=== PATIENT | male | born 1955 | race Caucasian/White ===

== ENCOUNTER 2019-09-29 19:27 | Emergency (ER) | payer BC ==
--- NOTE | 2019-09-29 19:47 | EDM.PDOC ---
ED HPI GENERAL MEDICAL PROBLEM - General Chief Complaint: Respiratory Problem Stated Complaint: SHORT OF BREATH Time Seen by Provider: 09/29/19 19:46 Source of Information: Reports: Patient History Limitations: Reports: No Limitations - History of Present Illness INITIAL COMMENTS - FREE TEXT/NARRATIVE: 64-year-old male presents to the ED due to severe paroxysmal cough throughout the day for the last week or more. Very rarely gets any phlegm up. No hemoptysis. No noted fever or chills. Was placed on a course of Augmentin for one week which she finished 2 days ago. He was also prescribed Phenergan with codeine cough syrup which did not seem to help control his cough. Was also given an albuterol inhaler. Patient is a never smoker. His hears him wheezing particularly during the night. Onset: Sudden Onset Date: 09/19/19 Duration: Day(s): (Illness started about 10 days ago), Constant, Other (Not getting any better after course of antibiotics.) Location: Reports: Chest (Severe paroxysmal cough nonproductive) Quality: Reports: Other Severity: Severe (Technical in his throat that makes him cough) Improves with: Reports: None Worsens with: Reports: Other Context: Denies: Activity (Lying down or exposure to cool air does not know certainly make it any worse.), Exercise, Lifting, Sick Contact Associated Symptoms: Reports: Chest Pain, Cough, Shortness of Breath (Cannot take a full deep breath as it makes him cough.). Denies: No Other Symptoms, Confusion (Central chest from coughing so much and ribs hurt from coughing so much.), cough w sputum, Diaphoresis, Fever/Chills, Headaches, Loss of Appetite, Malaise, Nausea/Vomiting, Rash, Seizure, Syncope Treatments J[employer]ER: Reports: Other (see below) (Suspicious completed a course of Augmentin) - Related Data Allergies Allergy/AdvReac Type Severity Reaction Status Date / Time No Known Allergies Allergy Verified 09/29/19 19:36 Home Meds: Home Meds Albuterol Sulfate [Albuterol Sulfate Hfa] 8.5 gm IH Q4HR PRN 09/29/19 [History] Amoxicillin/Clavulanate K [Augmentin 500-125 MG] 1 tab PO BID 09/29/19 [History] Aspirin 81 mg PO DAILY 09/29/19 [History] Codeine/Promethazine [Phenergan with Codeine] 5 ml PO DAILY 09/29/19 [History] Doxycycline [Vibramycin] 100 mg PO BID #20 cap 09/29/19 [Rx] HYDROcodone/Chlorphen Polis [Hydrocodone-Chlorpheniram] 5 ml PO Q12H #75 ml [Rx] Lisinopril 0 mg PO DAILY 09/29/19 [History] Metoprolol Tartrate 0 mg PO DAILY 09/29/19 [History] predniSONE [Prednisone] 20 mg PO ASDIRECTED #18 tablet 09/29/19 [Rx] Past Medical History HEENT History: Reports: Impaired Vision Cardiovascular History: Reports: Arrhythmia, High Cholesterol, Hypertension Respiratory History: Reports: None Gastrointestinal History: Reports: GERD Genitourinary History: Reports: None Neurological History: Reports: None Psychiatric History: Reports: None Endocrine/Metabolic History: Reports: Obesity/BMI 30+ Hematologic History: Reports: None Immunologic History: Reports: None Oncologic (Cancer) History: Reports: None Dermatologic History: Reports: None - Infectious Disease History Infectious Disease History: Reports: None - Past Surgical History GI Surgical History: Reports: Cholecystectomy, Other (See Below) Other GI Surgeries/Procedures: Splenectomy. Musculoskeletal Surgical History: Reports: Knee Replacement Other Musculoskeletal Surgeries/Procedures:: Arm Surgery Social & Family History - Tobacco Use Smoking Status *Q: Never Smoker - Caffeine Use Caffeine Use: Reports: None - Recreational Drug Use Recreational Drug Use: No - Living Situation & Occupation Living situation: Reports: Occupation: Employed ED ROS GENERAL - Review of Systems Review Of Systems: See Below Constitutional: Reports: Malaise, Weakness, Fatigue. Denies: Fever, Chills, Decreased Appetite, Weight Loss HEENT: Reports: Glasses Respiratory: Reports: Shortness of Breath, Wheezing, Cough. Denies: Pleuritic Chest Pain, Sputum (Severe paroxysmal cough to the point of nearly passing out and/or vomiting.) Cardiovascular: Reports: Chest Pain, Blood Pressure Problem (Central chest pain from coughing so much.), Dyspnea on Exertion. Denies: Claudication ( On medication for blood pressure and arrhythmias.), Edema, Lightheadedness, Orthopnea Endocrine: Reports: Fatigue GI/Abdominal: Reports: No Symptoms : Reports: Frequency, Other (No maravilla 2) Musculoskeletal: Reports: Back Pain, Joint Pain (Knees and hips and neck at times) Skin: Reports: No Symptoms Neurological: Reports: No Symptoms Psychiatric: Reports: No Symptoms Hematologic/Lymphatic: Reports: No Symptoms Immunologic: Reports: No Symptoms ED EXAM, GENERAL - Physical Exam Exam: See Below Exam Limited By: No Limitations General Appearance: Alert, WD/WN, No Apparent Distress, Other (Temperatures 36.4 pulse is 85 respiratory rate is 18 with O2 sats of 93% on room air. BP 11/19) Eye Exam: Bilateral Eye: Normal Inspection Throat/Mouth: Normal Inspection, Normal Lips, Normal Oropharynx Head: Atraumatic, Normocephalic Neck: Normal Inspection, Supple, Non-Tender, Full Range of Motion. No: Lymphadenopathy (L), Lymphadenopathy (R) Respiratory/Chest: No Respiratory Distress, No Accessory Muscle Use, Respiratory Distress, Wheezing (Diffuse expiratory wheezing). No: Lungs Clear, Normal Breath Sounds (Mild tachypnea), Crackles, Rales, Rhonchi, Stridor Cardiovascular: Regular Rate, Rhythm, No Edema, No Gallop, No Murmur, No Rub Peripheral Pulses: 1+: Posterior Tibial (L), Posterior Tibial (R), Dorsalis Pedis (L), Dorsalis Pedis (R) GI/Abdominal: Normal Bowel Sounds, Soft, Non-Tender, No Organomegaly, No Abnormal Bruit, No Mass, Pelvis Stable, Other (Abdominal girth limits ability to palpate solid organs.) Back Exam: Normal Inspection, Full Range of Motion. No: CVA Tenderness (L), CVA Tenderness (R) Extremities: Normal Inspection, Normal Range of Motion, Non-Tender Neurological: Alert, Oriented, CN II-XII Intact, Normal Cognition, Normal Gait Psychiatric: Normal Affect, Normal Mood Skin Exam: Warm, Dry, Intact, Normal Color, No Rash Course - Vital Signs Last Recorded V/S: Last Vital Signs Temp 36.4 C 09/29/19 19:34 Pulse 85 09/29/19 19:34 Resp 18 09/29/19 19:34 BP 114/55 L 09/29/19 19:34 Pulse Ox 95 09/29/19 21:17 - Orders/Labs/Meds Orders: Active Orders 24 hr Category Date Time Status RT Aerosol Therapy [RC] ASDIRECTED Care 09/29/19 19:56 Active RT Aerosol Therapy [RC] ASDIRECTED Care 09/29/19 21:09 Active Chest 1V Frontal [CR] Stat Exams 09/29/19 19:55 Taken Labs: Laboratory Tests 09/29/19 09/29/19 09/29/19 Range/Units 20:10 20:10 20:10 WBC 10.86 H (4.23-9.07) K/mm3 RBC 4.89 (4.63-6.08) M/mm3 Hgb 15.9 (13.7-17.5) gm/dl Hct 46.1 (40.1-51.0) % MCV 94.3 H (79.0-92.2) fl MCH 32.5 H (25.7-32.2) pg MCHC 34.5 (32.2-35.5) g/dl RDW Std Deviation 45.2 H (35.1-43.9) fL Plt Count 255 (163-337) K/mm3 MPV 9.3 L (9.4-12.3) fl Neut % (Auto) 68.1 H (34.0-67.9) % Lymph % (Auto) 23.2 (21.8-53.1) % [place] % (Auto) 6.8 (5.3-12.2) % Eos % (Auto) 0.6 L (0.8-7.0) Baso % (Auto) 0.5 (0.1-1.2) % Neut # (Auto) 7.40 H (1.78-5.38) K/mm3 Lymph # (Auto) 2.52 (1.32-3.57) K/mm3 [place] # (Auto) 0.74 (0.30-0.82) K/mm3 Eos # (Auto) 0.06 (0.04-0.54) K/mm3 Baso # (Auto) 0.05 (0.01-0.08) K/mm3 Manual Slide Review Normal smear D-Dimer, Quantitative (0.19-0.50) mg/L Sodium 140 (136-145) mEq/L Potassium 3.6 (3.5-5.1) mEq/L Chloride 104 (98-107) mEq/L Carbon Dioxide 23 (21-32) mEq/L Anion Gap 16.6 H (5-15) BUN 22 H (7-18) mg/dL Creatinine 1.2 (0.7-1.3) mg/dL Est Cr Clr Drug Dosing 59.67 mL/min Estimated GFR (MDRD) > 60 (>60) mL/min BUN/Creatinine Ratio 18.3 H (14-18) Glucose 143 H (80-115) mg/dL Calcium 8.6 (8.5-10.1) mg/dL Magnesium 1.5 L (1.8-2.4) mg/dl Total Bilirubin 0.3 (0.2-1.0) mg/dL AST 22 (15-37) U/L ALT 55 (16-63) U/L Alkaline Phosphatase 78 (46-116) U/L Troponin I < 0.017 (0.00-0.056) ng/mL C-Reactive Protein < 0.2 (<1.0) mg/dL NT-Pro-B Natriuret Pep 165 H (0-125) pg/mL Total Protein 6.5 (6.4-8.2) g/dl Albumin 3.5 (3.4-5.0) g/dl Globulin 3.0 gm/dL Albumin/Globulin Ratio 1.2 (1-2) 09/29/19 Range/Units 20:10 WBC (4.23-9.07) K/mm3 RBC (4.63-6.08) M/mm3 Hgb (13.7-17.5) gm/dl Hct (40.1-51.0) % MCV (79.0-92.2) fl MCH (25.7-32.2) pg MCHC (32.2-35.5) g/dl RDW Std Deviation (35.1-43.9) fL Plt Count (163-337) K/mm3 MPV (9.4-12.3) fl Neut % (Auto) (34.0-67.9) % Lymph % (Auto) (21.8-53.1) % [place] % (Auto) (5.3-12.2) % Eos % (Auto) (0.8-7.0) Baso % (Auto) (0.1-1.2) % Neut # (Auto) (1.78-5.38) K/mm3 Lymph # (Auto) (1.32-3.57) K/mm3 [place] # (Auto) (0.30-0.82) K/mm3 Eos # (Auto) (0.04-0.54) K/mm3 Baso # (Auto) (0.01-0.08) K/mm3 Manual Slide Review D-Dimer, Quantitative 0.32 (0.19-0.50) mg/L Sodium (136-145) mEq/L Potassium (3.5-5.1) mEq/L Chloride (98-107) mEq/L Carbon Dioxide (21-32) mEq/L Anion Gap (5-15) BUN (7-18) mg/dL Creatinine (0.7-1.3) mg/dL Est Cr Clr Drug Dosing mL/min Estimated GFR (MDRD) (>60) mL/min BUN/Creatinine Ratio (14-18) Glucose (80-115) mg/dL Calcium (8.5-10.1) mg/dL Magnesium (1.8-2.4) mg/dl Total Bilirubin (0.2-1.0) mg/dL AST (15-37) U/L ALT (16-63) U/L Alkaline Phosphatase (46-116) U/L Troponin I (0.00-0.056) ng/mL C-Reactive Protein (<1.0) mg/dL NT-Pro-B Natriuret Pep (0-125) pg/mL Total Protein (6.4-8.2) g/dl Albumin (3.4-5.0) g/dl Globulin gm/dL Albumin/Globulin Ratio (1-2) Meds: Medications Discontinued Medications Generic Name Dose Route Start Last Admin Trade Name Sureshq PRN Reason Stop Dose Admin Hydrocodone Bitart/Acetaminophen 1 tab 09/29/19 21:10 09/29/19 21:28 [place] 325-10 Mg PO 09/29/19 21:11 1 tab ONETIME ONE Administration Albuterol/Ipratropium 3 ml 09/29/19 19:56 09/29/19 20:09 Duoneb 3.0-0.5 Mg/3 Ml NEB 09/29/19 19:57 3 ml ONETIME ONE Administration Albuterol/Ipratropium 3 ml 09/29/19 21:09 09/29/19 21:16 Duoneb 3.0-0.5 Mg/3 Ml NEB 09/29/19 21:10 3 ml ONETIME ONE Administration Doxycycline Hyclate 100 mg 09/29/19 21:07 09/29/19 21:28 Vibramycin PO 09/29/19 21:08 100 mg ONETIME ONE Administration Prednisone 20 mg 09/29/19 21:08 09/29/19 21:29 Prednisone PO 09/29/19 21:09 20 mg ONETIME ONE Administration - Radiology Interpretation Free Text/Narrative:: 64-year-old male presents to the ED due to severe paroxysmal cough not producing any sputum for about 10 days. His O2 sats on room air 93%. He has never smoker. He has a history of cardiac arrhythmia and reports no changes to his medications which include lisinopril and metoprolol. Street heart failure. Patient is not necessarily any worse when he lies down at night to suggest orthopnea or PND. Examination reveals bilateral expiratory wheezes without any rhonchi. He is afebrile. Plan he will be screened for pertussis as he is coughing to the point of near emesis and/or experiencing some degree of laryngospasm with cough. He's been treated with albuterol inhaler and a seven- day course of Augmentin with no relief of his symptoms. Plan 1 view chest x-ray and routine labs include cardiac markers and BNP and a d-dimer to be done. He will receive a treatment with DuoNeb. - Re-Assessments/Exams Free Text/Narrative Re-Assessment/Exam: 09/29/19 20:08 chest x-ray reveals borderline cardiomegaly and slightly tortuous thoracic aorta. Visualized portion of the lung bhat appear clear. There is no pleural effusions. There is no pneumonia either. 09/29/19 20:57 White count is 10.86. Differential is 68% neutrophils. Hemoglobin is 15.9 with hematocrit of 46.1. MCV minimally elevated at 94.3. Platelet count 255,000. D-dimer is normal at 0.32. Sodium 140 with potassium of 3.6. Chloride 104 bicarbonate 23 anion gap is elevated at 16.6. BUN is 22 with creatinine 1.2. Glucose is 143 Calcium is 8.6. Magnesium is slightly low at 1.5. Liver function is normal troponin is less than 0.017. C-reactive protein is less than 0.2 BNP is 165. Total protein is 6.5 with an albumin fraction low- normal at 3.5. 09/29/19 21:12: Discussed the findings with the patient and his . It appears that he has a bronchitis which was productive of sputum up until the last day or so. He has been tested for pertussis which is a send out test. I was going to place him on a short course of Zithromax but it may prolong his QT interval with his metoprolol and therefore elected to place him on doxycycline 100 mg twice daily for 10 days. Cough syrup will be martin tests or Tussionex 5 mils every 12 hours. For cough relief. Started on a course of prednisone 20 mg twice a day for 6 days and then once in the morning only for another 6 days. He will use his albuterol inhaler with a spacing device for relief of cough and/or shortness of breath. He did have much better air entry with less wheezing after treatment with DuoNeb 2 in the department. Follow-up if not markedly improved in 7-10 days time. Hematology consult would likely be indicated that point time with lung function studies. Departure - Departure Time of Disposition: 21:11 Disposition: Home, Self-Care 01 Condition: Fair Clinical Impression: Acute wheezy bronchitis - Discharge Information *PRESCRIPTION DRUG MONITORING PROGRAM REVIEWED*: Not Applicable *COPY OF PRESCRIPTION DRUG MONITORING REPORT IN PATIENT KEMI: Not Applicable Prescriptions: Doxycycline [Vibramycin] 100 mg PO BID #20 cap HYDROcodone/Chlorphen Polis [Hydrocodone-Chlorpheniram] 5 ml PO Q12H #75 ml predniSONE [Prednisone] 20 mg PO ASDIRECTED #18 tablet Instructions: Acute Bronchitis, Adult, [id number] Referrals: Ronald Albright MD [Primary Care Provider] - Forms: ED Department Discharge Additional Instructions: Evaluation the emergency room tonight in regards to persistent severe paroxysmal cough to the point of nearly passing out and/or vomiting. Improvement with initial course of antibiotic Augmentin over the last 10 days. Asked x-ray done tonight shows no evidence of pneumonia or heart related illness. Lab tests also do not reveal any blood clots in the lungs or evidence of heart related illness such as heart failure with fluid build up in the lungs to cause such severe coughing. No signs of severe infection identified on lab work either. You're treated with 2 courses of DuoNeb while in the ED to help open up. Airways as you were very wheezy on examination. Treatment at home is to use no antibiotic doxycycline 100 mg twice daily for the next 10 days with initial tablet given in the ED tonight. This will cover for potential whooping cough infection which she were tested for tonangela but we will not get an answer back on for about 3-5 days. He will only get a phone call if you were positive. Suggest use of cough syrup called [place] suspension 5 mils about an hour before planning to go to bed and if needed in the morning if you coughing severely it can be taken about 12 hours apart. Prednisone 20 mg twice daily with breakfast and supper for 6 days and then once in the morning only for another 6 days which is designed to relieve inflammation of the bronchial tubes wheezing and help stop coughing. Continue to use her albuterol inhaler 2 puffs every 3 hours if needed for relief of severe cough and/or shortness of breath. If you are not markedly improved in 10 days' time in need to be reviewed and lung function studies would need to be carried out. 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 - My Orders Last 24 Hours: My Active Orders 09/29/19 19:55 Chest 1V Frontal [CR] Stat 09/29/19 19:56 RT Aerosol Therapy [RC] ASDIRECTED 09/29/19 21:09 RT Aerosol Therapy [RC] ASDIRECTED - Assessment/Plan Last 24 Hours: My Active Orders 09/29/19 19:55 Chest 1V Frontal [CR] Stat 09/29/19 19:56 RT Aerosol Therapy [RC] ASDIRECTED 09/29/19 21:09 RT Aerosol Therapy [RC] ASDIRECTED
[2019-09-29] MEDS ORDERED: Albuterol/Ipratropium 3.0-0.5 MG/3 ML Neb Soln NEB ONE ×2 (19:56→21:09)
[2019-09-29] MEDS ORDERED: Doxycycline 100 MG Cap PO ONE (21:07)
[2019-09-29] MEDS ORDERED: predniSONE 20 MG Tab PO ONE (21:08)
[2019-09-29] MEDS ORDERED: Acetaminophen/HYDROcodone 325-10 MG Tab PO ONE (21:10)
--- NOTE | 2019-09-30 08:31 | CR ---
Chest: Portable view of the chest was obtained. Comparison: No prior chest x-ray is available. Heart size is normal. Tortuous thoracic aorta is noted. Lungs show no acute parenchymal change. Bony structures are grossly intact. Impression: 1. Nothing acute is seen on portable chest x-ray. Diagnostic code #1
== END 2019-09-29 21:32 | disposition home or self-care (01) ==
LOC: JD.ED 19:27
DX: J40 Bronchitis, not specified as acute or chronic (principal); I10 Essential (primary) hypertension; E66.9 Obesity, unspecified; Z79.899 Other long term (current) drug therapy; Z79.82 Long term (current) use of aspirin; Z68.41 Body mass index [BMI] 40.0-44.9, adult
CPT/HCPCS: 36415; 71045; 80053; 83735; 83880; 84484; 85025; 85379; 86140; 94640; 99285; A9270; 99283; J7620-GY